=== PATIENT | male | born 1970 ===

== ENCOUNTER → 2019-01-01 | Outpatient (CLI) | payer OTHER ==
[2019-01-01 17:55] LABS: HEMATOCRIT 47.2 % (37.9-51.0); HEMOGLOBIN 17.1 g/dL (13.5-17.0); MEAN CORPUSCULAR HEMOGLOBIN 31.7 pg (27.0-33.4); MEAN CORPUSCULAR HGB CONC 36.1 g/dL (32.0-36.0); MEAN CORPUSCULAR VOLUME 88 fl (80-97); PLATELET COUNT 225 10^3/uL (150-450); RED BLOOD COUNT 5.38 10^6/uL (4.35-5.55); RED CELL DISTRIBUTION WIDTH 12.7 % (11.5-14.0); WHITE BLOOD COUNT 10.7 10^3/uL (4.0-10.5)
[2019-01-01 18:18] LABS: ALANINE AMINOTRANSFERASE 82 U/L (21-72); ALBUMIN 4.9 g/dL (3.5-5.0); ALKALINE PHOSPHATASE 59 U/L (38-126); ANION GAP 11 (5-19); ASPARTATE AMINO TRANSFERASE 38 U/L (17-59); BILIRUBIN,DIRECT 0.2 mg/dL (0.0-0.4); BILIRUBIN,TOTAL 0.8 mg/dL (0.2-1.3); BLOOD UREA NITROGEN 24 mg/dL (7-20); CALCIUM 10.2 mg/dL (8.4-10.2); CARBON DIOXIDE 29 mmol/L (22-30); CHLORIDE 99 mmol/L (98-107); GLUCOSE 76 mg/dL (75-110); POTASSIUM 3.8 mmol/L (3.6-5.0); SODIUM 139.3 mmol/L (137-145); TOTAL PROTEIN 7.7 g/dL (6.3-8.2)
[2019-01-01 18:27] LABS: ABSOLUTE LYMPHOCYTES# (MANUAL) 2.1 10^3/uL (0.5-4.7); ABSOLUTE MONOCYTES # (MANUAL) 0.9 10^3/uL (0.1-1.4); BASOPHILS % (MANUAL) 0 % (0-2); EOSINOPHILS % (MANUAL) 7 % (0-6); LYMPHOCYTES % (MANUAL) 18 % (13-45); MONOCYTES % (MANUAL) 8 % (3-13); SEGMENTED NEUTROPHILS % (MAN) 65 % (42-78); TOTAL CELLS COUNTED 100
[2019-01-01 18:28] LABS: OVALOCYTES SLIGHT; POIKILOCYTOSIS SLIGHT
[2019-01-01 18:29] LABS: PLATELET COMMENT ADEQUATE
== END ==
LOC: OD 16:52
PROVIDERS: ATTEND Orthopaedic Surgery Sports Medicine
DX: I10 Essential (primary) hypertension (principal)
CPT/HCPCS: 36415; 80053; 85025